=== PATIENT | male | born 1990 | race Caucasian/White ===

== ENCOUNTER 2018-07-24 11:49 | Emergency (ER) | payer SELFPAY ==
[2018-07-24 11:51] VITALS: BP 158/95; PULSE 79; RESP 14; TEMP 36.6; O2SAT 98; BMI 42.1
--- NOTE | 2018-07-24 12:08 | ED.VISSUMM ---
- ER Visit Summary Date of Service: 07/24/18 Chief Complaint: Bruner's palsy History of Present Illness: The patient is a 28 M with a history of Bruner's palsy years ago. He presents with 2 days of left face numbness and weakness. He also has decreased sensation. He had similar symptoms years ago with Bruner's palsy. Denies any vision changes. Denies any leg or arm numbness or weakness. Denies any trouble with his balance. Denies any trouble swallowing. No other symptoms. Physical Examination: Afebrile and vital signs unremarkable. In no acute distress. Alert and oriented. HEENT exam unremarkable except for left facial droop and weakness of his left side forehead muscles--decreased wrinkling. HEENT exam otherwise unremarkable. The remainder of his neurologic testing was unremarkable. No weakness, ataxia, incoordination, confusion, or altered mental status. Heart regular. Lungs clear. Abdomen soft. Skin appears normal without rash. Test Results: None performed Emergency Department Course and Treatment: Patient has signs and symptoms of Bruner's palsy. Will treat with prednisone and acyclovir. No indication for diagnostic testing at this time. Patient was referred to primary care for follow-up. He was advised to return for any new or worsening issues as he may need reevaluation or diagnostic testing if things change. Treatment Plan: As above plus eye precautions Disposition: Discharge Impression: 1. Left-sided Bruner's palsy This note was generated with [employer] dictation software. It may contain incorrect words, spelling, and punctuation that were not noted in review of the chart prior to signing ED Disposition - Plan for ED Patient: Chief Complaint: Neuro S/Sx Referrals: NOT,DEFINED [Primary Care Provider] -
--- NOTE | 2018-07-24 12:11 | ED.DEP ---
ED Disposition - Plan for ED Patient: Chief Complaint: Neuro S/Sx Instructions: ED [place] Palsy Prescriptions: Acyclovir 1 tab PO 5X/DAY #50 tab Prednisone 10 mg PO UD #33 tab Referrals: Clarke Heredia DO [STAFF PHYSICIAN] -
[2018-07-24 12:47] VITALS: RESP 14
== END 2018-07-24 13:14 | disposition home or self-care (01) ==
LOC: ED 13:02
PROVIDERS: Emergency Provider Emergency Medicine
DX: G51.0 Bell's palsy (principal)
CPT/HCPCS: 99282

== ENCOUNTER 2018-09-07 23:31 | Emergency (ER) | payer OTHER, SELFPAY ==
[2018-09-07 23:31] VITALS: BP 173/106; PULSE 68; RESP 17; TEMP 36.4; O2SAT 98; BMI 41.4
--- NOTE | 2018-09-07 23:56 | CT_ITS ---
HISTORY: PT STATED LEFT SIDE NUMBNESS TECHNIQUE: Multiple axial images were obtained of the brain without intravenous contrast. A radiation dose optimization technique was used for this scan. IV Contrast dosage and agent: None. COMPARISON: None FINDINGS: Normal ventricles. Normal yusuf-white matter differentiation. No intracranial mass, hemorrhage, or acute intracranial disease. Posterior fossa structures are unremarkable. No suspicious extra-axial fluid collection. As visualized, the mastoids and paranasal sinuses appear clear. CT/Brain/Head without Contrast IMPRESSION: Normal CT brain without contrast. Individualized dose optimization techniques were used for this CT. at 0054 Reported and signed by: Tino Antonio MD Electronically Signed: Tino Antonio, at 0:53 EST Tel , Service support ,
--- NOTE | 2018-09-07 23:56 | RAD_ITS ---
HISTORY: C/O TINGLING SENSATION IN ARMS AND UPPER CHEST DENIES ANY SOB, COUGH OR PAIN EXAM:XR Chest 1 View: Portable COMPARISON: None FINDINGS: EKG leads in place. Shallow inspiration. Mild elevation of the right hemidiaphragm compatible with chronic change. Equivocal low-grade patchy infiltrate at the right lung base. Left lung appears clear. Normal heart size. No vascular congestion or pleural effusion. No pneumothorax. RAD/Chest 1 View IMPRESSION: Limited inspiration. Equivocal low-grade patchy infiltrate at the right lung base. at 0015 Reported and signed by: Tino Antonio MD Electronically Signed: Tino Antonio, at 0:14 EST Tel , Service support ,
--- NOTE | 2018-09-07 23:56 | EKG12_ITS ---
Test Reason : NUMBNESS Blood Pressure : / mmHG Vent. Rate : 066 BPM Atrial Rate : 066 BPM P-R Int : 142 ms QRS Dur : 084 ms QT Int : 414 ms P-R-T Axes : 018 -03 001 degrees QTc Int : 434 ms Normal sinus rhythm with sinus arrhythmia Normal ECG Confirmed by DAIJA ANDERSON, SHELDON ([id number]), editor in chief newspaper PRABHA WEEKS ([id number]) on 09/13/2018 9:51:11 AM Referred By: ROLDAN Confirmed By:SHELDON CHOE MD
--- NOTE | 2018-09-08 00:16 | ED.RN ---
NO OLD EKGS IN MUSE
[2018-09-08 00:23] VITALS: BP 147/71; PULSE 65; RESP 16; O2SAT 96
[2018-09-08 00:30] VITALS: BP 145/71; PULSE 67; RESP 15; O2SAT 96
[2018-09-08 00:31] LABS: Absolute Lymphocyte Count 3.77 X10^3/ul (0.83-4.51); Basophil# 0.04 X10^3/uL; Basophil% 0.4 % (0-1); Eosinophils% 3.1 % (0-5); Hematocrit 45.4 % (40-54); Hemoglobin 15.1 g/dl (13.0-16.5); Lymphocyte # 3.77 X10^3/ul (4.0); Lymphocyte % 38.8 % (19-41); Mean Corp Hgb Conc 33.3 g/gl (32-36); Mean Corpuscular Hgb 28.8 pg (27.0-32.0); Mean Corpuscular Volume 86.6 fL (80-94); Mean Platelet Vol. 9.1 fl (6.2-12.0); Monocyte# 0.63 X10^3/uL; Monocyte% 6.5 % (0-10); Neutrophil # 4.96 X10^3/uL (2.7-7.7); Neutrophil % 51.1 % (47-70); Platelet Count 251 K/mm3 (150-450); RBC Distribution Width CV 13.5 % (11.6-14.6); RBC Distribution Width SD 42.6 fl (35.1-43.9); Red Blood Count 5.24 M/mm3 (4.6-6.2); White Blood Count 9.7 K/mm3 (4.4-11.0)
[2018-09-08 00:38] LABS: POSITIVE COUNT NO; POSITIVE DIFFERENTIAL NO; POSITIVE MORPHOLOGY NO
[2018-09-08 00:46] LABS: International Normalized Ratio 0.9; Partial Thromboplast Time 28.9 Seconds (24.1-36.2); Prothrombin Time (Protime)PT. 12.5 SECONDS (11.7-14.9)
[2018-09-08 00:51] LABS: Anion Gap 9 (5-15); BUN 9 mg/dL (7-18); Calcium,Total 8.9 mg/dL (8.5-10.1); Chloride 109 mmol/L (98-107); Creatinine, Serum 1.13 mg/dL (0.70-1.30); EST Glomerular Filtration Rate 81 mL/min (>60); Est Glom Filt Rate - Afr Amer 98 mL/min (>60); Estimated Creatinine Clearance 95.59 ml/min; Glucose 99 mg/dL (74-106); Sodium Level 143 mmol/L (136-145)
--- NOTE | 2018-09-08 01:01 | ED.VISSUMM ---
- ER Visit Summary Date of Service: 09/08/18 Chief Complaint: Paresthesias History of Present Illness: The patient is a 28 M who presents with left arm and face numbness and tingling. He was diagnosed with Bruner's palsy in July. He still has some mild left facial weakness and numbness. However he also developed left arm numbness which was new today about 7 hours before presentation. No extremity weakness no slurred speech or speech difficulty. He states he did have similar symptoms in his arm before he developed the Bruner's palsy. No fever chest pain shortness of breath. No headache. Physical Examination: Afebrile vitals notable for blood pressure 173/106 on repeat blood pressure 145/71 NIH is 2 due to left facial weakness which is mild and involves the upper and lower face, patient reports slightly decreased sensation to light touch of the left arm normal strength Heart regular rate and rhythm Lungs are clear Abdomen soft Alert and oriented Test Results: EKG shows sinus rhythm at a rate of 66. CT the head is normal. Chest x-ray shows equivocal low-grade patchy infiltrate at the right base. Labs unremarkable with negative troponin and normal coagulation studies. Emergency Department Course and Treatment: Workup as above. Test x-ray was read as possible infiltrate however he has no respiratory symptoms no hypoxia fever tachycardia cough. I do not believe this represents pneumonia. I believe his facial paresthesia and weakness are likely related to Bruner's palsy. His new left arm paresthesia could be related to process such as cervical radiculopathy. I do not believe he requires admission at this time but he was advised to follow-up as an outpatient and understands clearly to return for any new or worsening symptoms was instructed on specific signs and symptoms to monitor for. Patient discharged. Treatment Plan: [] Disposition: Discharge Impression: Left arm paresthesia Bruner's palsy This note was generated with [employer] dictation software. It may contain incorrect words, spelling, and punctuation that were not noted in review of the chart prior to signing ED Disposition - Plan for ED Patient: Chief Complaint: Numb/Ting Referrals: Care Physician,No Primary [Primary Care Provider] -
--- NOTE | 2018-09-08 01:05 | ED.DEP ---
ED Disposition - Plan for ED Patient: Chief Complaint: Numb/Ting Instructions: ED Paraesthesias Referrals: Care Physician,No Primary [Primary Care Provider] - Clarke Heredia DO [STAFF PHYSICIAN] -
[2018-09-08 01:18] VITALS: BP 152/87; PULSE 68; RESP 15; O2SAT 98
== END 2018-09-08 01:32 | disposition home or self-care (01) ==
PROVIDERS: Emergency Provider Emergency Medicine
DX: R20.2 Paresthesia of skin (principal); G51.0 Bell's palsy
CPT/HCPCS: 70450; 71045; 80048; 84484; 85025; 85610; 85730; 93005; 99285

== ENCOUNTER 2023-09-28 12:28 | Observation (INO) | payer BC, SELFPAY ==
[2023-09-28 12:29] VITALS: BP 159/115; PULSE 88; RESP 16; TEMP 36.1; O2SAT 99; BMI 47.6
--- NOTE | 2023-09-28 13:19 | ED.VIS.GI ---
HPI HPI - GI History of Present Illness Chief Complaint: Abd Pain Informant: patient Abdominal Pain/Flank Pain Onset: Days (2) Context: Gradual Onset Timing: Continuous Quality: Burning and - (Pressure) Location: Epigastric and LUQ Worsened by: Nothing Relieved by: - (Pushing on abdomen) Nausea/Vomiting/Emesis GI Symptom: Positive for Nausea and Vomiting Onset: Today Quality: Positive for Nonbilious; Negative for Blood streaks, Coffee ground or Hematemesis Diarrhea/Melena/Hematochezia GI Symptom: Positive for Diarrhea; Negative for Melena or Hematochezia Associated Symptoms Associated Symptoms: Negative for Dysuria, Frequency or Hematuria Narrative Narrative: Patient presents with abdominal pain that has been getting worse over the past 2 days. Patient states the pain is mainly over the left upper abdomen. Patient states that it has been waxing and waning over the past couple days. Patient states nothing seems to make it worse. Patient states it feels better when he is able to push on his abdomen. Patient describes it as pressure and burning. Patient states it is mainly over the left lower quadrant and epigastric area. Patient denies any back pain. Patient admits to some nausea, vomiting, diarrhea. Patient denies any hematemesis or coffee-ground emesis. Patient denies any melena or hematochezia. Patient denies any urinary complaints. [facility] Medical History (Updated 09/28/23 @ 17:[address] Quintin Allison DO) Hypertension Home Medications aluminum-mag hydroxide-simethicone 200 mg-200 mg-20 mg/5 mL oral susp (Advanced Antacid-Antigas) 5 ml PO Q3H PRN indigestion 09/28/23 [History Last Taken 09/28/23] Allergy/AdvReac Type Severity Reaction Status Date / Time shellfish derived Allergy Mild Itching Verified 09/28/23 12:31 Surgical History no surgical history no surgical history Social History Smoking Status: Never smoker ROS ROS ED Constitutional Constitutional ED: Reports fever(s) and sweats; Denies chills Eyes Eyes: Denies blurry vision or change in vision ENT ENT ED: Denies rhinorrhea or sore throat Cardiovascular Cardiovascular: Denies chest pain or palpitations Respiratory/Chest Respiratory/Chest: Denies cough or dyspnea Gastrointestinal Gastrointestinal: Reports abdominal pain, diarrhea, nausea and vomiting; Denies melena Genitourinary Genitourinary ED: Denies dysuria or hematuria Musculoskeletal Musculoskeletal: Denies back pain or neck pain Integumentary Denies abscess or rash Neurologic Neurologic: Denies headache(s) or weakness Allergic/Immunologic Allergic/Immunologic ED: Denies mouth swelling or urticaria EXAM Physical Exam Const Vital Signs: 09/28/23 12:29 Temperature 97.0 F L Temperature Source Temporal Pulse Rate 88 Respiratory Rate 16 Blood Pressure 159/115 H Blood Pressure Mean 129 Pulse Ox 99 Oxygen Delivery Method Room Air Positive well nourished and well developed General Appearance ED: well developed and NAD HEENT Reports moist mucous membranes Neck supple and no JVD Resp normal respiratory effort and clear to auscultation bilaterally Cardio regular rate and regular rhythm GI non-distended Palpation: soft and tender epigastric and LUQ; Negative for guarding or rebound tenderness present Extremity full ROM General Extremety ED: Negative for edema or tenderness General Extremity: Negative for edema Neuro CN's II-XII intact bilaterally, moves all extremities and no sensory deficits noted Sensorium / Orientation: alert Motor Exam: strength 5/5 throughout Psych mental status grossly normal MDM MDM MDM Narrative Medical decision making narrative: Differential diagnosis includes peptic ulcer disease, GERD, pancreatitis, duodenal ulcer, cholecystitis, cholelithiasis, pyelonephritis, bowel obstruction, and perforation. CT scan of the abdomen pelvis will be obtained to assess for pancreatitis, cholecystitis, bowel obstruction, and perforation. CBC will be obtained to assess for leukocytosis and anemia. Comprehensive metabolic profile will be obtained to assess for hepatic function, renal function, and electrolyte abnormality. Urinalysis will be obtained to assess for urinary tract infection or hematuria. Lipase will be obtained to assess for pancreatitis. Lab Data Attestation: I reviewed the patient's lab results. Lab results narrative: CBC was reviewed. There is a mild leukocytosis of 16.9. The remainder is within normal limits. Comprehensive metabolic profile was reviewed. AST was slightly elevated at 109 and ALT was slightly elevated at 201. Total bilirubin was normal. Alkaline phosphatase was normal. Electrolytes were normal. Anion gap was normal. Lipase was reviewed and was normal at 18. Urinalysis was reviewed. There is no evidence of urinary tract infection or hematuria. Labs: Laboratory Results - last 24 hr 09/28/23 09/28/23 13:40 13:50 WBC 16.9 H RBC 5.79 Hgb 16.3 Hct 49.6 MCV 85.7 MCH 28.2 MCHC 32.9 RDW Std Deviation 41.2 RDW Coeff of Lynda 13.4 Plt Count 336 MPV 9.4 Immature Gran % (Auto) 0.500 Neut % (Auto) 77.9 H Lymph % (Auto) 16.4 L [place] % (Auto) 4.1 Eos % (Auto) 0.4 Baso % (Auto) 0.7 Absolute Neuts (auto) 13.2 H Absolute Lymphs (auto) 2.76 Nucleated RBC % 0 Sodium 136 Potassium 4.1 Chloride 106 Carbon Dioxide 21.0 Anion Gap 9 BUN 9 Creatinine 0.89 Estim Creat Clear Calc 160.41 Est GFR (MDRD) Af Amer 124 Est GFR (MDRD) Non-Af 103 BUN/Creatinine Ratio 10.1 Glucose 100 Calcium 9.0 Total Bilirubin 0.30 AST 109 H ALT 201 H Alkaline Phosphatase 97 Total Protein 7.5 Albumin 3.7 Globulin 3.8 Albumin/Globulin Ratio 1.0 Lipase 18 Urine Color Yellow Urine Clarity Clear Urine pH 7.0 Ur Specific [place] 1.010 Urine Protein 100 H Urine Glucose (UA) Normal Urine Ketones 5 H Urine Occult Blood Negative Urine Nitrite Negative Urine Bilirubin Negative Urine Urobilinogen Normal Ur Leukocyte Esterase Negative Urine RBC 0 SEEN Urine WBC 0 SEEN Ur Squamous Epith Cells 0-5 SEEN Urine Bacteria 0 SEEN Urine Mucus 0 SEEN Radiography Diagnostic Testing: Clinical Impression(s) from Imaging Studies Abdomen/Pelvis CT 09/28/23 13:33 IMPRESSION: Diffuse fatty infiltration of the liver. Possible mild degree of gallbladder wall thickening. Correlation with ultrasound is recommended if clinically indicated. Scattered sigmoid diverticula. Electronically Signed: Hussain Evangelista MD at 15:38 EST , Gallbladder Ultrasound 09/28/23 15:46 IMPRESSION: Cholelithiasis with gallbladder wall thickening. No biliary dilatation. Fatty enlarged liver. Electronically Signed: Tommy Sales DO at 16:47 EST , CT scan of the abdomen pelvis was obtained. There is diffuse fatty infiltration of the liver. There is possible mild degree of gallbladder wall thickening. There are scattered sigmoid diverticula. There is no evidence of diverticulitis. This was interpreted by the radiologist and was also independently reviewed by myself. Because of the CT findings, right upper quadrant ultrasound was obtained. There is cholelithiasis and gallbladder wall thickening. There is no ductal dilatation noted. There is no pericholecystic fluid noted. Patient negative sonographic Patel sign. This was interpreted by the radiologist and was also independently reviewed by myself. Management Discussion w/another healthcare provider: Manager Metrology Treatment and Re-Evaluation :: Patient was given IV fluids, morphine, and Zofran. Due to his allergy to shellfish, patient was given a dose of Benadryl and Solu-Medrol prior to CT scan. Patient was feeling somewhat better on reevaluation. Patient was advised of his findings. Patient states that his pain is starting to return. Patient was given a repeat dose of morphine. Case will be discussed with Dr. Andres from general surgery. He will be in to evaluate the patient. He stated he would likely admit the patient for possible cholecystectomy tomorrow. Patient was given a dose of Zosyn. Patient understood and was agreeable with the plan. All questions were answered. Discharge Plan Triage Chief Complaint: Abd Pain ED Provider: Quintin Allison Dx/Rx/DC Orders Clinical Impression: Acute cholecystitis, Cholelithiasis Prescriptions: No Action alum-mag hydroxide-simeth [Advanced Antacid-Antigas] 200-200-20 mg/5 mL suspension 5 ml PO Q3H PRN (Reason: indigestion) Primary Care Provider: Andreas Winkler Referrals: Care Physician,No Primary [Non-Staff] - Disposition Disposition: [facility]3] Care [facility]
--- NOTE | 2023-09-28 13:33 | CT_ITS ---
STUDY: CT ABDOMEN AND PELVIS WITH CONTRAST REASON FOR EXAM: Male, 33 years old. Left upper quadrant abdominal pain. RADIATION DOSAGE (If Supplied By Facility): CTDIvol = ( 18.74 ) mGy, DLP = ( 1390.01 ) mGycm TECHNIQUE: Transaxial images were obtained from the dome of the diaphragm to the symphysis pubis with oral contrast. Oral and amp; IV Gastrografin and amp; 100mL Isovue-370 was administered. Sagittal and coronal images were reconstructed. Individualized dose optimization techniques were used for this CT. COMPARISON: None. FINDINGS: The visualized lung bases are unremarkable. The visualized portions of the heart are within normal limits. There is decreased attenuation of the liver consistent with steatosis. Questionable mild gallbladder wall thickening. Correlation with ultrasound is recommended if clinically indicated. Normal spleen. Normal pancreas. Normal bilateral adrenal glands. Normal right kidney. Normal left kidney. Normal visualized stomach. Normal small intestine. There are scattered colonic diverticula consistent with diverticulosis. The appendix is visualized and appears normal. Normal abdominal aorta. Normal inferior vena cava. Normal retroperitoneum. Normal urinary bladder. Normal abdominal wall. Normal osseous structures. CT/Abdomen/Pelvis WITH Contrast IMPRESSION: Diffuse fatty infiltration of the liver. Possible mild degree of gallbladder wall thickening. Correlation with ultrasound is recommended if clinically indicated. Scattered sigmoid diverticula. Electronically Signed: Hussain Evangelista MD at 15:38 EST ,
[2023-09-28 13:50] LABS: Absolute Lymphocyte Count 2.76 X10^3/uL (0.83-4.51); Absolute Neutrophil Count 13.2 X10^3/uL (2.0-7.7); Basophil# 0.11 X10^3/uL; Basophil% 0.7 % (0-1); Eosinophil# 0.07 X10^3/uL; Eosinophils% 0.4 % (0-5); Hematocrit 49.6 % (40-54); Hemoglobin 16.3 g/dL (13.0-16.5); Lymphocyte # 2.76 X10^3/ul (0.83-4.51); Lymphocyte % 16.4 % (19-41); Mean Corp Hgb Conc 32.9 g/dL (32-36); Mean Corpuscular Hgb 28.2 pg (27.0-32.0); Mean Corpuscular Volume 85.7 fL (80-94); Mean Platelet Vol. 9.4 fl (6.2-12.0); Monocyte% 4.1 % (0-10); NRBC Flagged by Analyzer 0 % (0-5); Neutrophil # 13.15 X10^3/uL (2.7-7.7); Neutrophil % 77.9 % (47-70); Platelet Count 336 K/mm3 (150-450); RBC Distribution Width CV 13.4 % (11.6-14.6); RBC Distribution Width SD 41.2 fl (35.1-43.9); Red Blood Count 5.79 M/mm3 (4.6-6.2); White Blood Count 16.9 K/mm3 (4.4-11.0)
[2023-09-28 13:57] LABS: Bacteria 0 SEEN /hpf (None Seen); Mucous, Urine 0 SEEN /hpf (<or=2+); Red Blood Cells-Urine 0 SEEN /hpf (0-5); White Blood Cells 0 SEEN /hpf (0-5)
[2023-09-28 13:59] LABS: Color, Urine Yellow (Yellow); Glucose, Dipstick Normal (Normal); Ketone-Dipstick 5 mg/dl (Negative); Leukocyte Esterase-Dipstick Negative /ul (Negative); Nitrite-Dipstick Negative (Negative); Occult Blood-Urine Negative /ul (Negative); Protein-Dipstick 100 mg/dl (Negative); Urine Bilirubin Dipstick Negative (Negative); Urine Clarity Clear (Clear); Urine Urobilinogen Normal (Normal)
[2023-09-28] MEDS: Morphine 4 MG/ML Syringe IV ×2 (14:00→17:28)
[2023-09-28] MEDS: MethylPREDNISolone 125 MG/2 ML Vial 60 MG IV (14:00)
[2023-09-28] MEDS: Ondansetron 4 MG/2 ML Vial IV (14:00)
[2023-09-28] MEDS: 0.9% Normal Saline (1000mL) 1,000 ML 1000 ML IV (14:00)
[2023-09-28] MEDS: DiphenhydrAMINE 50 MG/ML Syringe 25 MG IV (14:00)
[2023-09-28 14:12] LABS: AST(SGOT) 109 U/L (15-37); Alanine Aminotransfer ALT/SGPT 201 U/L (16-61); Albumin, Serum 3.7 g/dL (3.2-5.0); Alkaline Phosphatase 97 U/L (45-117); Anion Gap 9 (5-15); BUN 9 mg/dL (7-18); BUN/Creat Ratio 10.1 RATIO (10-20); Chloride 106 mmol/L (98-107); Creatinine, Serum 0.89 mg/dL (0.70-1.30); EST Glomerular Filtration Rate 103 mL/min (>60); Est Glom Filt Rate - Afr Amer 124 mL/min (>60); Estimated Creatinine Clearance 160.41 ml/min; Globulin 3.8 g/dL (2.2-4.2); Glucose 100 mg/dL (74-106); Lipase 18 U/L (13-75); Potassium 4.1 mmol/L (3.5-5.1); Protein, Total 7.5 g/dL (6.4-8.2); Sodium Level 136 mmol/L (136-145)
[2023-09-28 14:27] LABS: Squamous Epithelial Cells - UA 0-5 SEEN /hpf (0-5)
--- NOTE | 2023-09-28 15:46 | US_ITS ---
INDICATION: PAIN EXAMINATION: Ultrasound US Abdomen Limited (quadrant) TECHNIQUE: Hobbs scale and color doppler imaging was performed of the right upper quadrant. COMPARISON: FINDINGS: LIVER: There is fatty echotexture measuring 22.3 cm. There is an ill-defined area measuring 3.8 x 2.2 cm of hypoechogenicity adjacent to the gallbladder related to focal area of fatty sparing. There is no free fluid. GALLBLADDER AND BILIARY TREE: Cholelithiasis with gallbladder wall thickening measuring 7.8 mm. No pericholecystic fluid. The proximal common bile duct measures 4.8 mm, which is within normal limits for the patient''s age. Songraphic Patel''s sign: Negative. PANCREAS: Limited visualization of the pancreas. RIGHT KIDNEY: 4.4 x 6.0 x 5.7 cm the cortex is 40 mm. No hydronephrosis. No shadowing calculi. US/Gallbladder IMPRESSION: Cholelithiasis with gallbladder wall thickening. No biliary dilatation. Fatty enlarged liver. Electronically Signed: Tommy Sales DO at 16:47 EST ,
[2023-09-28 17:34] VITALS: BP 164/95; PULSE 83; RESP 16; O2SAT 94
[2023-09-28] MEDS: Piperacil/Tazobactam 4.5 GM in 0.9% Normal Saline (100mL MB+) 100 ML IV (18:19)
--- NOTE | 2023-09-28 18:31 | PCM.HP.STD ---
HPI - General General Date of Admission: 09/28/23 Chief Complaint: Abdominal pain HPI Narrative RELL WHARTON, is a 33 M who presents to [facility] ER with complaints of upper abdominal pain that began suddenly approximately 1 AM this morning after a dinner of pulled pork at 7 PM last evening. He shares his pain was accompanied by nausea, sweats, and some diarrhea. 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 He acknowledges a history of heartburn but states this feels different. He relates that he has had milder versions of this abdominal pain for the last month or so. Patient's ER workup was notable for CBC which shows leukocytosis of 17,[address] imaging of the abdomen pelvis showed a mildly thickened gallbladder wall which was confirmed with follow-up right upper quadrant ultrasound. Notably no ductal dilatation was seen on that study but LFTs as part of patient's comprehensive metabolic panel were elevated. Patient has a history of hypertension but he states is not managed medically. He has had no prior surgeries. [facility] Medical History Hyperlipidemia Hypertension Home Medications aluminum-mag hydroxide-simethicone 200 mg-200 mg-20 mg/5 mL oral susp (Advanced Antacid-Antigas) 5 ml PO Q3H PRN indigestion 09/28/23 [History Last Taken 09/28/23] Allergy/AdvReac Type Severity Reaction Status Date / Time shellfish derived Allergy Mild Itching Verified 09/28/23 12:31 Surgical History no surgical history Social History Smoking Status: Current every day smoker tobacco type: cigarettes ROS Constitutional Constitutional: Reports night sweats Gastrointestinal Gastrointestinal: Reports abdominal pain, diarrhea, nausea and vomiting Vital Signs Vital Signs Vital Signs: 09/28/23 12:29 09/28/23 17:34 Temperature 97.0 F L Temperature Source Temporal Pulse Rate 88 83 Respiratory Rate 16 16 Blood Pressure 159/115 H 164/95 H Blood Pressure Mean 129 118 Pulse Ox 99 94 Oxygen Delivery Method Room Air Room Air Weight Weight: 313 lb 6 oz Body Mass Index (BMI) 47.6 Physical Exam Const alert Constitutional Narrative: Appears in distress with a hand constantly over his epigastrium and right upper quadrant General Appearance: cooperative Resp normal respiratory effort GI GI Narrative: Nondistended, no scars, hirsute, soft, tender to palpation in the epigastrium and right upper quadrant. Positive Patel sign is present. Results Lab / Micro Data 09/28/23 13:40 09/28/23 13:40 Labs: Laboratory Results - last 24 hr 09/28/23 13:40: WBC 16.9 H, RBC 5.79, Hgb 16.3, Hct 49.6, MCV 85.7, MCH 28.2, MCHC 32.9, RDW Std Deviation 41.2, RDW Coeff of Lynda 13.4, Plt Count 336, MPV 9.4, Immature Gran % (Auto) 0.500, Neut % (Auto) 77.9 H, Lymph % (Auto) 16.4 L, [place] % (Auto) 4.1, Eos % (Auto) 0.4, Baso % (Auto) 0.7, Absolute Neuts (auto) 13.2 H, Absolute Lymphs (auto) 2.76, Nucleated RBC % 0, Sodium 136, Potassium 4.1, Chloride 106, Carbon Dioxide 21.0, Anion Gap 9, BUN 9, Creatinine 0.89, Estim Creat Clear Calc 160.41, Est GFR (MDRD) Af Amer 124, Est GFR (MDRD) Non-Af 103, BUN/Creatinine Ratio 10.1, Glucose 100, Calcium 9.0, Total Bilirubin 0.30, AST 109 H, ALT 201 H, Alkaline Phosphatase 97, Total Protein 7.5, Albumin 3.7, Globulin 3.8, Albumin/Globulin Ratio 1.0, Lipase 18 09/28/23 13:50: Urine Color Yellow, Urine Clarity Clear, Urine pH 7.0, Ur Specific [place] 1.010, Urine Protein 100 H, Urine Glucose (UA) Normal, Urine Ketones 5 H, Urine Occult Blood Negative, Urine Nitrite Negative, Urine Bilirubin Negative, Urine Urobilinogen Normal, Ur Leukocyte Esterase Negative, Urine RBC 0 SEEN, Urine WBC 0 SEEN, Ur Squamous Epith Cells 0-5 SEEN, Urine Bacteria 0 SEEN, Urine Mucus 0 SEEN Imaging Radiology Impression Abdomen/Pelvis CT 09/28/23 13:33 IMPRESSION: Diffuse fatty infiltration of the liver. Possible mild degree of gallbladder wall thickening. Correlation with ultrasound is recommended if clinically indicated. Scattered sigmoid diverticula. Electronically Signed: Hussain vEangelista MD at 15:38 EST , Gallbladder Ultrasound 09/28/23 15:46 IMPRESSION: Cholelithiasis with gallbladder wall thickening. No biliary dilatation. Fatty enlarged liver. Electronically Signed: Tommy Sales DO at 16:47 EST , Assessment & Plan Assessment/Plan (1) Acute cholecystitis: PLAN: This is a 33-year-old male, with only prior past medical history of untreated hypertension, who presents with signs and symptoms of acute cholecystitis. His exam is further consistent with this diagnosis. I have discussed management of this condition and recommended proceeding for laparoscopic cholecystectomy with intraoperative cholangiography. The latter is particularly important given the patient does exhibit some elevation of his LFTs. I have shared with him that an alternative explanation could be some fatty liver infiltration and we will look to assess whether this is the case, grossly, intraoperatively. Details of the procedure were provided and Mr. Wharton provides his verbal agreement to proceed as described. We will plan to go to the operating room tomorrow morning as the emergency OR schedule allows. In the interim he will be admitted overnight for IV antibiotics, IV fluids, and ongoing medical management. Patient should be held n.p.o. past midnight in anticipation of his operation. Consents to be obtained by nursing for laparoscopic cholecystectomy with intraoperative cholangiogram. Charges/Coding Visit Charges Inpatient E&M: 86942 Init Hosp L2
[2023-09-28 18:57] VITALS: BP 169/83; PULSE 85; RESP 12; TEMP 37; O2SAT 96; BMI 47.6
[2023-09-28] MEDS: 0.9% Normal Saline (1000mL) 1,000 ML 125 ML IV (19:06)
[2023-09-28] MEDS: Pantoprazole Sodium 40 MG in 0.9% Normal Saline (100mL MB+) 100 ML 330 MG IV (19:18)
[2023-09-28 20:05] VITALS: BMI 47.6
[2023-09-28 22:21] VITALS: BP 159/85; PULSE 84; RESP 18; TEMP 36.6; O2SAT 95
[2023-09-28] MEDS: HYDROmorphone 0.5 MG/0.5 ML SYRINGE IV (23:01)
[2023-09-28] MEDS: Piperacil/Tazobactam 3.375 GM in 0.9% Normal Saline (50mL MB+) 50 ML IV (23:01)
[2023-09-29] VITALS (20 sets, daily range): BP systolic 142–199; BP diastolic 72–108; PULSE 84–107; RESP 16–24; TEMP 36.2–37.5; O2SAT 95–100; BMI 47.6
[2023-09-29] MEDS: 0.9% Normal Saline (1000mL) 1,000 ML 125 ML IV ×2 (01:16→15:11)
[2023-09-29 05:48] LABS: Absolute Lymphocyte Count 2.68 X10^3/uL (0.83-4.51); Absolute Neutrophil Count 18.7 X10^3/uL (2.0-7.7); Basophil# 0.04 X10^3/uL; Basophil% 0.2 % (0-1); Hematocrit 46.9 % (40-54); Hemoglobin 15.5 g/dL (13.0-16.5); Lymphocyte # 2.68 X10^3/ul (0.83-4.51); Mean Corpuscular Hgb 28.3 pg (27.0-32.0); Mean Corpuscular Volume 85.7 fL (80-94); Mean Platelet Vol. 9.5 fl (6.2-12.0); Monocyte# 0.84 X10^3/uL; Monocyte% 3.8 % (0-10); NRBC Flagged by Analyzer 0 % (0-5); Neutrophil # 18.67 X10^3/uL (2.7-7.7); Neutrophil % 83.4 % (47-70); Platelet Count 321 K/mm3 (150-450); RBC Distribution Width CV 13.4 % (11.6-14.6); RBC Distribution Width SD 42.3 fl (35.1-43.9); Red Blood Count 5.47 M/mm3 (4.6-6.2); White Blood Count 22.4 K/mm3 (4.4-11.0)
[2023-09-29] MEDS: Piperacil/Tazobactam 3.375 GM in 0.9% Normal Saline (50mL MB+) 50 ML IV ×3 (06:12→21:34)
[2023-09-29 06:20] LABS: ALB/GLOB Ratio 0.9 RATIO (0.9-2.4); AST(SGOT) 49 U/L (15-37); Alanine Aminotransfer ALT/SGPT 155 U/L (16-61); Albumin, Serum 3.7 g/dL (3.2-5.0); Alkaline Phosphatase 92 U/L (45-117); Anion Gap 5 (5-15); BUN 8 mg/dL (7-18); BUN/Creat Ratio 8.8 RATIO (10-20); Chloride 106 mmol/L (98-107); EST Glomerular Filtration Rate 101 mL/min (>60); Est Glom Filt Rate - Afr Amer 122 mL/min (>60); Estimated Creatinine Clearance 158.54 ml/min; Globulin 3.9 g/dL (2.2-4.2); Glucose 120 mg/dL (74-106); Magnesium 2.4 mg/dL (1.6-2.6); Phosphorus 3.1 mg/dL (2.5-4.9); Protein, Total 7.6 g/dL (6.4-8.2); Sodium Level 135 mmol/L (136-145)
--- NOTE | 2023-09-29 06:30 | RAD_ITS ---
CLINICAL HISTORY: Male, 33 years old. Cholecystectomy PROCEDURE: CHOLANGIOGRAM - intraoperative CONSENT: Informed consent obtained SEDATION: General FLUOROSCOPY TIME (if supplied): (11.4 seconds) Placement of the catheter and the procedure were performed by: Dr. Andres Fluoroscopy was provided by Rebecca Triplett, who was present in the room time of the procedure. TECHNIQUE: (All elements of maximal sterile barrier technique followed, including US elements as applicable) After the gallbladder was removed, the cystic duct remnant was cannulized and contrast injected into the biliary tree. The biliary tree is not dilated, there is no evidence of a retained stone. There is normal flow of contrast into the duodenum without evidence of extravasation to suspect bile leak. RAD/Cholangiogram/ O R,Initial IMPRESSION: Normal intraoperative cholangiogram Electronically Signed: Tho Gilbert MD at 13:55 EST ,
--- NOTE | 2023-09-29 09:00 | GALL_PTH ---
PATIENT: RELL KENDALL LOC: MS3 U#:[id number] AGE/SX: 33/M ROOM: [facility] [place] RE[place]/28/[address]: Dr. Edilson Andres MD : 1990 BED: 1 DIS: 10/01/2023 SPEC #: [id number] RECD: 09/29/23 15:19 STATUS: GAGE REQ #: [id number] YE: 09/29/23 09:[address]: Edilson Andres DEPT: SURGICAL PATHOLOGY RECD BY: Mirian Chatterjee ENTERED: 09/30/23 08:40 SP TYPE: MIGUEL CASAREZ DR: MD Dr. Hamzah Gamino, DO MD Dr. Mellissa Khanna MD Dr. Achintya Singh, MD Dr. Autumn L White, MD Dr. Mary Catherine Sementi, DO Dr. Andrzej Dunn, DO MD Marcus Pearson MD Dr. Eric Jopperi, DO MD Dr. Sergey Trevino MD Dr. James Mooney, MD Dr. Jonathan Vogt, DO Dr. Arabella Terry, DO Dr. Clarke Dietz, DO MD Dr. Juanito Franco MD Dr. Prakash Chand, MD Dr. Paul Nielsen, MD Dr. Paige Pierce, MD Dr. Ryan Burkholder, MD Dr. William Lago, MD Jessica Franklin, EHSAN-GRANT Zuleta Tissues: Gallbladder, NOS Procedures: Surgery Specimen Level III HEADER OPERATION: Laparoscopic cholecystectomy with IOC PRE-OP DIAGNOSIS: Acute cholecystitis TISSUE SUBMITTED: Gallbladder MICROSCOPIC DIAGNOSIS Gallbladder, cholecystectomy: Chronic cholecystitis and cholelithiasis. AM:priya 10/01/2023 MICROSCOPIC DESCRIPTION Slides are reviewed. GROSS DESCRIPTION Received is one container labeled with the patient's name and designated gallbladder. The specimen consists of a previously, partially opened gallbladder measuring 8.5 cm in length and 4.0 cm in diameter. The external surface is pink-hairston, smooth and glistening for the most part. Focally it is granular, hemorrhagic and contains cautery artifact. The gallbladder contains a large amount of sludge material. Present in the gallbladder and also in the container are multiple yellow, multifaceted stones and stone fragments measuring in aggregate 7.0 x 5.0 x 2.0 cm and 0.4 to 1.8 cm in greatest dimension. The mucosa is congested, hemorrhagic and ulcerated. Many of the stones are impacted in the cystic duct. bile-stained and without any mass lesions. The gallbladder wall measures up to 0.5 cm in thickness. Water Main Installer Helper sections from the gallbladder and the cystic duct are submitted in one cassette. / SJ:rg 09/30/2023 TC:3 CPT: 95092
[2023-09-29] MEDS: Bupivacaine Mpf 0.5% 30 ML VIAL (13:05)
[2023-09-29] MEDS: Lactated Ringers 1,000 ML 15 ML IV (13:10)
--- NOTE | 2023-09-29 13:12 | PCM.OPRPT ---
Problems Associated Problem List Diagnoses (1) Acute cholecystitis: Report of Operation Date of Procedure: 09/29/23 Pre-Operative Diagnosis: Acute cholecystitis Post-Operative Diagnosis: Acute on chronic cholecystitis Surgery/Procedure Performed:: Laparoscopic cholecystectomy with intraoperative cholangiography Description of Surgical Findings:: ? Severe acute on chronic cholecystitis with diminutive cystic duct and anterior and posterior cystic arteries but otherwise normal biliary anatomy Surgeon: Edilson Andres hotel front desk clerk: Rafita Coulter hotel front desk clerk: Alisson Soriano Type of Anesthesia: General/Supplemental Anesthesiologist: Darryl Schuster Specimen's removed: Gallbladder Drains: None Estimated Blood Loss (mL): 100 Description of Procedure: After proper identification in the preoperative holding area the patient was brought to the operating room where he was positioned supine on the operating room table. Preoperatively that these were connected and antibiotics were administered. General anesthesia was then induced. Patient's abdomen was prepped and draped in usual sterile fashion. A formal timeout was conducted to confirm both patient and the procedure. Procedure was begun with a supraumbilical incision which was extended deeply down to the level of the fascia. The fascia was elevated and incised, as well as the peritoneum. A finger sweep was performed to ensure there were no underlying adhesions and a 12 mm balloon trocar was inserted. Pneumoperitoneum was established at 15 mmHg. 3 additional 5 mm trocars were placed in the epigastrium and in the right upper quadrant initially but a fourth trocar was added to the right upper quadrant later in the procedure. Inspection of the peritoneum revealed no inadvertent injury to the viscera below. The gallbladder was visualized with a moderate degree of inflammation but was also heavily surrounded in the omentum initially. The gallbladder fundus was unable to be easily grasped given the density of the stones and the thickness of the gallbladder wall which limited its ability to be elevated cephalad. Using careful dissection the peritoneum was opened and the rind of the gallbladder was stripped down from lateral to medial. The density of the inflammation proved very challenging to isolate the infundibular portion of the gallbladder and I thus requested the assistance of my partner, Dr. Coulter, to complete this portion of the procedure. During the attempt to elevate the gallbladder cephalad I made an inadvertent rent in the gallbladder body adjacent to the infundibular region resulting in local spillage of bile and stones which were immediately suctioned free of the peritoneum. After Dr. Coulter arrived to the OR, jointly we were able to carefully take down the inflammatory rind medially and identified a diminutive cystic duct entering the location of the presumed common bile duct as well as anterior and posterior cystic arteries. This diminutive duct was cannulated with a Ranfac catheter after partial ductotomy and a cholangiogram was obtained. Under fluoroscopy a cholangiogram was then obtained showing a standard length small caliber cystic duct flowing into a common bile duct with unobstructed antegrade flow of contrast into the duodenum. There was also retrograde flow through the common hepatic duct into the right and left hepatic ducts. Satisfied with this result, the cholangiocatheter was withdrawn and the proximal cystic duct was sealed with clips and the cystic duct was completely transected. The same process was used for the cystic arteries. The gallbladder was then removed from the gallbladder fossa with the use of electrocautery. Selective electrocautery was used to obtain hemostasis in the gallbladder fossa. The gallbladder was placed in an Endo Catch bag and removed from the peritoneum. Loose gallstones were also added to this Endo Catch bag after identification laparoscopically. Morison's pouch was irrigated with multiple liters of irrigation and the effluent was suctioned free of the peritoneum. Hemostasis was again confirmed. The fascia of the 12 mm port site was closed with #1 PDS in a [id number] fashion under laparoscopic visualization given the thickness of the patient's abdominal wall. A total of 30 mL of anesthetic was injected at the port sites for postoperative pain control. The skin of each port site was then closed in subcuticular fashion using 4-0 Monocryl. Steri-Strips and bandages were applied as dressings. Patient tolerated the procedure well without any apparent complications. On emergence from their anesthetic the patient was taken to PACU for ongoing recovery. Complications None Admit VTE Documentation VTE Mechan Device Prophylaxis: SCD's Procedures Digestive 40xxx-49xxx: 01596 Laparo cholecystectomy/graph
--- NOTE | 2023-09-29 13:59 | PCM.PN.HOSP ---
Reason for Visit Reason for Visit: Diagnoses Acute cholecystitis (09/28/23) Subjective Subjective 33M history of hypertension presented to [facility] 09/28/2023 with worsening abdominal pain over 2 days mainly over his left upper abdomen. Pain had been waxing and waning and sometimes feels better when he is able to push on his abdomen without any worsening factors. Pain is pressure and burning in nature and mainly left lower quadrant and epigastric in nature. Has had some nausea, vomiting, diarrhea without hematemesis or coffee-ground emesis. In ED AST 109 and ALT 201 with white blood cell count of 16.9 lab workup fairly benign otherwise. He did have CT of the abdomen which showed diffuse fatty infiltration of the liver with possible gallbladder wall thickening and ultrasound was recommended and this was obtained in ED. Ultrasound demonstrated cholelithiasis with gallbladder wall thickening with no biliary dilatation and fatty enlarged liver. Case was discussed with general surgery and he was admitted for cholecystitis and taken for cholecystectomy 09/29/2023. Hospitalist consulted postoperatively for medical management/perioperative hypertension. Patient evaluated post cholecystectomy. Pt seen at bedside, reports abd soreness, no nausea, no chest pain or SOB, no other acute complaints. Objective Data Objective Data Vital Signs: Vital Signs Temp Pulse Resp BP Pulse Ox O2 Del Method O2 Flow Rate 97.8 F 89 22 H 172/93 H 97 Nasal Cannula 4 09/29/23 13:33 09/29/23 13:45 09/29/23 13:45 09/29/23 13:45 09/29/23 13:45 09/29/23 13:45 09/29/23 13:45 Oxygen Flow Rate (L/min) 4 Oxygen Delivery Method Nasal Cannula Weight: 142 kg Body Mass Index (BMI) 47.6 Intake & Output: Intake and Output for Last 24 Hours 09/27/23 09/28/23 09/29/23 23:59 23:59 23:59 Intake Total 1810 / 1810 870.83 / 870.83 Balance 1810 / 1810 870.83 / 870.83 Lab / Micro Data 09/29/23 05:27 09/29/23 05:27 Labs: Laboratory Results - last 24 hr 09/28/23 13:40: Sodium 136, Potassium 4.1, Chloride 106, Carbon Dioxide 21.0, Anion Gap 9, BUN 9, Creatinine 0.89, Estim Creat Clear Calc 160.41, Est GFR (MDRD) Af Amer 124, Est GFR (MDRD) Non-Af 103, BUN/Creatinine Ratio 10.1, Glucose 100, Calcium 9.0, Total Bilirubin 0.30, AST 109 H, ALT 201 H, Alkaline Phosphatase 97, Total Protein 7.5, Albumin 3.7, Globulin 3.8, Albumin/Globulin Ratio 1.0, Lipase 18 09/28/23 13:50: Urine Color Yellow, Urine Clarity Clear, Urine pH 7.0, Ur Specific Bayard 1.010, Urine Protein 100 H, Urine Glucose (UA) Normal, Urine Ketones 5 H, Urine Occult Blood Negative, Urine Nitrite Negative, Urine Bilirubin Negative, Urine Urobilinogen Normal, Ur Leukocyte Esterase Negative, Urine RBC 0 SEEN, Urine WBC 0 SEEN, Ur Squamous Epith Cells 0-5 SEEN, Urine Bacteria 0 SEEN, Urine Mucus 0 SEEN 09/29/23 05:27: WBC 22.4 H, RBC 5.47, Hgb 15.5, Hct 46.9, MCV 85.7, MCH 28.3, MCHC 33.0, RDW Std Deviation 42.3, RDW Coeff of Lynda 13.4, Plt Count 321, MPV 9.5, Immature Gran % (Auto) 0.600, Neut % (Auto) 83.4 H, Lymph % (Auto) 12.0 L, [place] % (Auto) 3.8, Eos % (Auto) 0.0, Baso % (Auto) 0.2, Absolute Neuts (auto) 18.7 H, Absolute Lymphs (auto) 2.68, Nucleated RBC % 0, Sodium 135 L, Potassium 4.0, Chloride 106, Carbon Dioxide 24.0, Anion Gap 5, BUN 8, Creatinine 0.90, Estim Creat Clear Calc 158.54, Est GFR (MDRD) Af Amer 122, Est GFR (MDRD) Non-Af 101, BUN/Creatinine Ratio 8.8 L, Glucose 120 H, Calcium 9.0, Phosphorus 3.1, Magnesium 2.4, Total Bilirubin 0.50, AST 49 H, ALT 155 H, Alkaline Phosphatase 92, Total Protein 7.6, Albumin 3.7, Globulin 3.9, Albumin/Globulin Ratio 0.9 Radiography Diagnostic Testing: Radiology Impression Abdomen/Pelvis CT 09/28/23 13:33 IMPRESSION: Diffuse fatty infiltration of the liver. Possible mild degree of gallbladder wall thickening. Correlation with ultrasound is recommended if clinically indicated. Scattered sigmoid diverticula. Electronically Signed: Hussain Evangelista MD at 15:38 EST , Gallbladder Ultrasound 09/28/23 15:46 IMPRESSION: Cholelithiasis with gallbladder wall thickening. No biliary dilatation. Fatty enlarged liver. Electronically Signed: Tommy Sales DO at 16:47 EST , Cholangiogram 09/29/23 06:30 IMPRESSION: Normal intraoperative cholangiogram Electronically Signed: Tho Gilbert MD at 13:55 EST , Assessment & Plan Assessment/Plan (1) Acute cholecystitis: (2) Hypertension: PLAN: Plan #HTN -Suspect this is a chronic problem that will need further outpatient follow-up however we will begin medication while in the hospital -Given significant elevation start amlodipine today and continue hydralazine as needed and will plan to start losartan tomorrow and these can both be uptitrated over time, presently not in hypertensive urgency or emergency so no emergent indication to acutely lower blood pressure # Acute on chronic cholecystitis -Status post cholecystectomy 09/29/2023 -Fluids -Antibiotics -Management per primary #Morbid obesity -BMI 47.6 kg/m? -Complicates treatment, prognosis, outcomes -Recommend weight loss and lifestyle changes -May benefit from outpatient sleep study/sleep apnea evaluation #DVT ppx: SCDs Marlys Shipman MD Time spent in the patient's overall evaluation,decision-making process, review of diagnostic data, adjustment of management, discussion with other providers, nursing nursing and ancillary staff involved in patient's care documentation, 42 minutes Charges/Coding Visit Charges Inpatient E&M: 16599 Subs Hosp L2
[2023-09-29] MEDS: Pantoprazole Sodium 40 MG in 0.9% Normal Saline (100mL MB+) 100 ML 330 MG IV (15:11)
[2023-09-29] MEDS: 0.9% Saline Lock 10 ML Syringe IV ×2 (15:11→17:40)
[2023-09-29] MEDS: HYDROmorphone 0.5 MG/0.5 ML SYRINGE IV (15:11)
[2023-09-29] MEDS: amLODIPine 5 MG Tablet PO (15:12)
--- NOTE | 2023-09-29 15:20 | CASEMGMT ---
KALANI HAMM Assessment: Face to Face with pt for initial transition planning/care coordination assessment. RN HANSEL introduced self and role at [facility], pt voices understanding and consents to assessment. Pt is A&O x4 and answers all questions appropriately at this time. Pt lying in bed with oxygen on with mother in room. Pt agreeable with assessment being completed in presence of mother. Care providers, pharmacy, and demographics verified/updated. Admitting Dx:acute cholecystitis PCP:Cathi Specialists:Denies Preferred Pharmacy:[facility] Insurance:[place] Prescription Benefit: yes LNOK:Yanni and Ezequiel Leaver, parents Living Arrangements: Pt lives with , brother and father in a two story home with 2 steps to enter. Pt reports he is I in ADL's and denies concerns at home. Transportation: Pt drives self and denies concerns with transportation. DME:Denies HHC/SNF:Denies hx of Pt states no concerns with going home at time of dc. Pt states no further concerns/needs. CM to follow. Advised pt to ask CM if any further question/concerns/needs arise, voices understanding. Pt Goal:Home Plan:Home
[2023-09-29] MEDS: hydrALAZINE 20 MG/ML Vial 10 MG IV (17:39)
[2023-09-29] MEDS: oxyCODONE 5 MG Tablet PO (21:34)
[2023-09-29] MEDS: Acetaminophen 500 MG Tablet PO (21:34)
[2023-09-29] MEDS: 0.9% Normal Saline (1000mL) 1,000 ML 50 ML IV (23:58)
[2023-09-30] VITALS (12 sets, daily range): BP systolic 136–167; BP diastolic 82–94; PULSE 76–93; RESP 16–18; TEMP 36.6–37.6; O2SAT 94–97
[2023-09-30] MEDS: Ibuprofen 400 MG Tablet PO ×5 (05:16→23:56)
[2023-09-30] MEDS: Piperacil/Tazobactam 3.375 GM in 0.9% Normal Saline (50mL MB+) 50 ML IV (05:17)
[2023-09-30] MEDS: oxyCODONE 5 MG Tablet PO (06:30)
[2023-09-30] MEDS: Acetaminophen 500 MG Tablet PO ×2 (06:30→18:42)
--- NOTE | 2023-09-30 06:35 | NURSING ---
Pt walked a full lap in the [facility]
[2023-09-30] MEDS: Losartan Potassium 25 MG Tablet PO (07:45)
[2023-09-30] MEDS: amLODIPine 5 MG Tablet PO (07:45)
[2023-09-30] MEDS: 0.9% Saline Lock 10 ML Syringe IV ×4 (08:55→16:28)
[2023-09-30] MEDS: HYDROmorphone 0.5 MG/0.5 ML SYRINGE IV (08:55)
[2023-09-30 09:06] LABS: Absolute Lymphocyte Count 2.56 X10^3/uL (0.83-4.51); Absolute Neutrophil Count 13.2 X10^3/uL (2.0-7.7); Basophil# 0.06 X10^3/uL; Basophil% 0.4 % (0-1); Eosinophil# 0.06 X10^3/uL; Eosinophils% 0.4 % (0-5); Hematocrit 46.5 % (40-54); Hemoglobin 14.8 g/dL (13.0-16.5); Lymphocyte # 2.56 X10^3/ul (0.83-4.51); Lymphocyte % 14.9 % (19-41); Mean Corp Hgb Conc 31.8 g/dL (32-36); Mean Corpuscular Hgb 28.1 pg (27.0-32.0); Mean Corpuscular Volume 88.4 fL (80-94); Mean Platelet Vol. 9.3 fl (6.2-12.0); Monocyte# 1.21 X10^3/uL; Monocyte% 7.1 % (0-10); NRBC Flagged by Analyzer 0 % (0-5); Neutrophil # 13.18 X10^3/uL (2.7-7.7); Neutrophil % 76.8 % (47-70); Platelet Count 305 K/mm3 (150-450); RBC Distribution Width SD 44.8 fl (35.1-43.9); Red Blood Count 5.26 M/mm3 (4.6-6.2); White Blood Count 17.1 K/mm3 (4.4-11.0)
[2023-09-30] MEDS: Pantoprazole Sodium 40 MG in 0.9% Normal Saline (100mL MB+) 100 ML 330 MG IV (09:35)
[2023-09-30] MEDS: Ondansetron 4 MG/2 ML Vial IV (09:35)
[2023-09-30 10:12] LABS: ALB/GLOB Ratio 0.9 RATIO (0.9-2.4); AST(SGOT) 97 U/L (15-37); Alanine Aminotransfer ALT/SGPT 199 U/L (16-61); Albumin, Serum 3.5 g/dL (3.2-5.0); Alkaline Phosphatase 82 U/L (45-117); Anion Gap 4 (5-15); BUN 8 mg/dL (7-18); BUN/Creat Ratio 8.1 RATIO (10-20); Calcium,Total 8.7 mg/dL (8.5-10.1); Chloride 109 mmol/L (98-107); Creatinine, Serum 0.99 mg/dL (0.70-1.30); EST Glomerular Filtration Rate 91 mL/min (>60); Est Glom Filt Rate - Afr Amer 110 mL/min (>60); Estimated Creatinine Clearance 144.12 ml/min; Globulin 3.8 g/dL (2.2-4.2); Glucose 102 mg/dL (74-106); Potassium 3.7 mmol/L (3.5-5.1); Protein, Total 7.3 g/dL (6.4-8.2); Sodium Level 137 mmol/L (136-145)
--- NOTE | 2023-09-30 10:26 | PN.SURG_ITS ---
Subjective Subjective Patient is a 33 y/o M who I am seeing in conjunction with Dr. Andres this morning. Patient appears to be very painful this morning. He denies nausea, vomiting. He has passed flatus. He is not hungry this morning. He did tolerate clear liquids last night. Objective Data Objective Data Vital Signs: Vital Signs Temp Pulse Resp BP Pulse Ox O2 Del Method O2 Flow Rate 99.0 F 93 16 136/93 H 97 Room Air 2 09/30/23 10:15 09/30/23 09:04 09/30/23 10:15 09/30/23 10:15 09/30/23 10:15 09/30/23 10:15 09/29/23 20:22 Oxygen Flow Rate (L/min) 2 Oxygen Delivery Method Room Air Weight: 313 lb 0.902 oz Body Mass Index (BMI) 47.6 Intake & Output: Intake and Output for Last 24 Hours 09/28/23 09/29/23 09/30/23 23:59 23:59 23:59 Intake Total 1810 / 1810 4586.74 / 4586.74 650 / 650 Balance 1810 / 1810 4586.74 / 4586.74 650 / 650 Lab / Micro Data 09/30/23 08:53 09/30/23 08:53 Labs: Laboratory Results - last 24 hr 09/30/23 08:53: WBC 17.1 H, RBC 5.26, Hgb 14.8, Hct 46.5, MCV 88.4, MCH 28.1, MCHC 31.8 L, RDW Std Deviation 44.8 H, RDW Coeff of Lynda 14.0, Plt Count 305, MPV 9.3, Immature Gran % (Auto) 0.400, Neut % (Auto) 76.8 H, Lymph % (Auto) 14.9 L, [place] % (Auto) 7.1, Eos % (Auto) 0.4, Baso % (Auto) 0.4, Absolute Neuts (auto) 13.2 H, Absolute Lymphs (auto) 2.56, Nucleated RBC % 0, Sodium 137, Potassium 3.7, Chloride 109 H, Carbon Dioxide 24.0, Anion Gap 4 L, BUN 8, Creatinine 0.99, Estim Creat Clear Calc 144.12, Est GFR (MDRD) Af Amer 110, Est GFR (MDRD) Non-Af 91, BUN/Creatinine Ratio 8.1 L, Glucose 102, Calcium 8.7, Total Bilirubin 1.00, AST 97 H, ALT 199 H, Alkaline Phosphatase 82, Total Protein 7.3, Albumin 3.5, Globulin 3.8, Albumin/Globulin Ratio 0.9 Radiography Diagnostic Testing: Radiology Impression Cholangiogram 09/29/23 06:30 IMPRESSION: Normal intraoperative cholangiogram Electronically Signed: Tho Gilbert MD at 13:55 EST , Physical Exam Const alert, oriented x3 and no apparent distress GI GI Narrative: Abdomen- obese, very tender to palpation. Incisions c/d/i. No erythema or infection noted. Assessment & Plan Assessment/Plan (1) Acute cholecystitis: PLAN: I evaluated this patient in conjunction with Dr. Andres this morning. Patient noting generalized abdominal pain, slightly worse in the RUQ Increase diet to full liquids D/C IV fluids and antibiotics Keep patient's IV KVO at this time Possible discharge later today Appreciate hospitalist input Charges/Coding Visit Charges Inpatient E&M: 73329 Subs Hosp L1 (post-op; no charge)
--- NOTE | 2023-09-30 10:39 | PN.HOSP_ITS ---
Reason for Visit Reason for Visit: Diagnoses Essential (primary) hypertension (09/28/23) Acute cholecystitis (09/28/23) Subjective Subjective Having abdominal pain postoperatively but otherwise feeling well. Patient was notified that his oxygen dropped down to 85% while he was sleeping. Patient is never been evaluated for sleep apnea in the past. Objective Data Objective Data Vital Signs: Vital Signs Temp Pulse Resp BP Pulse Ox O2 Del Method O2 Flow Rate 37.2 C 93 16 136/93 H 97 Room Air 2 09/30/23 10:15 09/30/23 09:04 09/30/23 10:15 09/30/23 10:15 09/30/23 10:15 09/30/23 10:15 09/29/23 20:22 Oxygen Flow Rate (L/min) 2 Oxygen Delivery Method Room Air Weight: 142 kg Body Mass Index (BMI) 47.6 Intake & Output: Intake and Output for Last 24 Hours 09/28/23 09/29/23 09/30/23 23:59 23:59 23:59 Intake Total 1810 / 1810 4586.74 / 4586.74 650 / 650 Balance 1810 / 1810 4586.74 / 4586.74 650 / 650 Lab / Micro Data 09/30/23 08:53 09/30/23 08:53 Labs: Laboratory Results - last 24 hr 09/30/23 08:53: WBC 17.1 H, RBC 5.26, Hgb 14.8, Hct 46.5, MCV 88.4, MCH 28.1, MCHC 31.8 L, RDW Std Deviation 44.8 H, RDW Coeff of Lynda 14.0, Plt Count 305, MPV 9.3, Immature Gran % (Auto) 0.400, Neut % (Auto) 76.8 H, Lymph % (Auto) 14.9 L, [place] % (Auto) 7.1, Eos % (Auto) 0.4, Baso % (Auto) 0.4, Absolute Neuts (auto) 13.2 H, Absolute Lymphs (auto) 2.56, Nucleated RBC % 0, Sodium 137, Potassium 3.7, Chloride 109 H, Carbon Dioxide 24.0, Anion Gap 4 L, BUN 8, Creatinine 0.99, Estim Creat Clear Calc 144.12, Est GFR (MDRD) Af Amer 110, Est GFR (MDRD) Non-Af 91, BUN/Creatinine Ratio 8.1 L, Glucose 102, Calcium 8.7, Total Bilirubin 1.00, AST 97 H, ALT 199 H, Alkaline Phosphatase 82, Total Protein 7.3, Albumin 3.5, Globulin 3.8, Albumin/Globulin Ratio 0.9 Radiography Diagnostic Testing: Radiology Impression Cholangiogram 09/29/23 06:30 IMPRESSION: Normal intraoperative cholangiogram Electronically Signed: Tho Gilbert MD at 13:55 EST , Physical Exam Narrative Holding his abdomen. Nontoxic. No respiratory stress. No conversational dyspnea. Const alert and no apparent distress HEENT head/scalp atraumatic Resp no use of accessory muscles Assessment & Plan Assessment/Plan (1) Acute cholecystitis: PLAN: Plan Acute cholecystitis: Status post laparoscopic cholecystectomy. Management per surgery. Leukocytosis: Secondary to cholecystitis. Trending down. On pip-tazo. Suspected obstructive sleep apnea: Patient was noted to drop his sats at night. Is unclear if patient does have sleep apnea or if just combination of his surgery as well as pain medications may have precipitated that. Advised patient that weight loss would help but can be further evaluated as outpatient for sleep study. Medically stable. Will follow peripherally. Charges/Coding Visit Charges Inpatient E&M: 08504 [facility] Hosp L1
[2023-09-30] MEDS: Ketorolac 30 MG/ML Syringe IM (13:02)
--- NOTE | 2023-09-30 15:12 | NURSING ---
reviewed student charting
[2023-09-30] MEDS: hydrALAZINE 20 MG/ML Vial 10 MG IV (16:28)
[2023-10-01 02:00] VITALS: BP 147/85; PULSE 85; RESP 16; TEMP 36.6; O2SAT 96
[2023-10-01] MEDS: Acetaminophen 500 MG Tablet PO (02:35)
[2023-10-01] MEDS: Ibuprofen 400 MG Tablet PO ×2 (06:02→11:32)
[2023-10-01 08:59] LABS: Absolute Lymphocyte Count 2.35 X10^3/uL (0.83-4.51); Absolute Neutrophil Count 8.1 X10^3/uL (2.0-7.7); Basophil# 0.04 X10^3/uL; Basophil% 0.3 % (0-1); Eosinophil# 0.18 X10^3/uL; Eosinophils% 1.6 % (0-5); Hematocrit 43.1 % (40-54); Lymphocyte # 2.35 X10^3/ul (0.83-4.51); Lymphocyte % 20.5 % (19-41); Mean Corp Hgb Conc 32.5 g/dL (32-36); Mean Corpuscular Hgb 28.2 pg (27.0-32.0); Mean Corpuscular Volume 86.7 fL (80-94); Mean Platelet Vol. 9.2 fl (6.2-12.0); Monocyte# 0.76 X10^3/uL; Monocyte% 6.6 % (0-10); NRBC Flagged by Analyzer 0 % (0-5); Neutrophil # 8.06 X10^3/uL (2.7-7.7); Neutrophil % 70.5 % (47-70); Platelet Count 286 K/mm3 (150-450); RBC Distribution Width CV 13.7 % (11.6-14.6); RBC Distribution Width SD 43.3 fl (35.1-43.9); Red Blood Count 4.97 M/mm3 (4.6-6.2); White Blood Count 11.5 K/mm3 (4.4-11.0)
[2023-10-01 09:11] VITALS: BP 148/79; PULSE 83; RESP 18; TEMP 36.6; O2SAT 96
[2023-10-01] MEDS: amLODIPine 5 MG Tablet PO (09:22)
[2023-10-01] MEDS: Pantoprazole Sodium 40 MG in 0.9% Normal Saline (100mL MB+) 100 ML 330 MG IV (09:22)
[2023-10-01] MEDS: Losartan Potassium 25 MG Tablet PO (09:22)
[2023-10-01 09:29] LABS: ALB/GLOB Ratio 0.8 RATIO (0.9-2.4); AST(SGOT) 99 U/L (15-37); Alanine Aminotransfer ALT/SGPT 196 U/L (16-61); Albumin, Serum 3.3 g/dL (3.2-5.0); Alkaline Phosphatase 82 U/L (45-117); Anion Gap 7 (5-15); BUN 8 mg/dL (7-18); BUN/Creat Ratio 11.4 RATIO (10-20); Calcium,Total 8.9 mg/dL (8.5-10.1); Chloride 108 mmol/L (98-107); EST Glomerular Filtration Rate 136 mL/min (>60); Est Glom Filt Rate - Afr Amer 165 mL/min (>60); Estimated Creatinine Clearance 203.83 ml/min; Globulin 3.9 g/dL (2.2-4.2); Glucose 96 mg/dL (74-106); Potassium 3.3 mmol/L (3.5-5.1); Protein, Total 7.2 g/dL (6.4-8.2); Sodium Level 137 mmol/L (136-145)
--- NOTE | 2023-10-01 10:30 | PCM.DC.SUM ---
Providers Date of Admission: 09/28/23 Primary Care Physician: Dr. Andreas Winkler MD Consultations 09/29/23 13:48 Consult: Hospitalist Routine Consulting Provider: Leodan Chambers Reason for Consult: medical management EMERGENT Consult: No MD Notified: Yes Date Notified: 09/29/23 Time Notified: 13:48 Method of Notification: Verbal Reason For Visit: ACUTE CHOLECYSTITIS Diagnosis Discharge Diagnosis (1) Acute cholecystitis: Status: Acute Code(s): K81.0 - Acute cholecystitis Plan: I evaluated this patient in conjunction with Dr. Andres this morning. Patient noting generalized abdominal pain, slightly worse in the RUQ Increase diet to full liquids D/C IV fluids and antibiotics Keep patient's IV KVO at this time Possible discharge later today Appreciate hospitalist input Medications at Discharge Home Medications aluminum-mag hydroxide-simethicone 200 mg-200 mg-20 mg/5 mL oral susp (Advanced Antacid-Antigas) 5 ml PO Q3H PRN indigestion 09/28/23 amlodipine 5 mg tablet 5 mg PO DAILY #30 tabs 09/30/23 losartan 25 mg tablet 25 mg PO DAILY #30 tabs 09/30/23 oxycodone 5 mg tablet 5 mg PO Q6H PRN PRN Pain Score 6-10 3 days #10 tabs 09/30/23 Hospital Course Operations cholecystecomy (Laparoscopic cholecystectomy with intraoperative cholangiography) Summary of Care Provided Minutes Spent on Discharge: 30 Hospital Course: Patient is a 33 y/o M who presented with acute cholecystitis. Dr. Andres performed a Laparoscopic cholecystectomy with intraoperative cholangiography on 09/29/23. Patient tolerated the procedure well. Patient had an uncomplicated hospitalization. Upon discharge, patient's pain seems better controlled. He tolerated his current diet. He feels comfortable going home. Physical Exam GI GI Narrative: abdomen- soft, slight tenderness at the incision sites in the RUQ. Incisions c/d/i. No erythema or infection noted. Positive bowel sounds. Weight / BMI Weight Weight: 313 lb 0.902 oz Body Mass Index (BMI) 47.6 ABG / Lab / Microbiology Data 10/01/23 08:25 10/01/23 08:25 Laboratory: Laboratory Results - last 24 hr 10/01/23 08:25: WBC 11.5 H, RBC 4.97, Hgb 14.0, Hct 43.1, MCV 86.7, MCH 28.2, MCHC 32.5, RDW Std Deviation 43.3, RDW Coeff of Lynda 13.7, Plt Count 286, MPV 9.2, Immature Gran % (Auto) 0.500, Neut % (Auto) 70.5 H, Lymph % (Auto) 20.5, [place] % (Auto) 6.6, Eos % (Auto) 1.6, Baso % (Auto) 0.3, Absolute Neuts (auto) 8.1 H, Absolute Lymphs (auto) 2.35, Nucleated RBC % 0, Sodium 137, Potassium 3.3 L, Chloride 108 H, Carbon Dioxide 22.0, Anion Gap 7, BUN 8, Creatinine 0.70, Estim Creat Clear Calc 203.83, Est GFR (MDRD) Af Amer 165, Est GFR (MDRD) Non-Af 136, BUN/Creatinine Ratio 11.4, Glucose 96, Calcium 8.9, Total Bilirubin 0.90, AST 99 H, ALT 196 H, Alkaline Phosphatase 82, Total Protein 7.2, Albumin 3.3, Globulin 3.9, Albumin/Globulin Ratio 0.8 L D/C Instructions Discharge Diet: Light diet - advance as tolerated Discharge Activity: May Not Drive (3-5 days or while taking narcotic pain medication) Lifting Restrictions: 15 pounds for 3 weeks Call your doctor if your incision/area has: Continuous Slow Oozing, Sudden Increased Bleeding, Increased Pain/ Swelling, Increased Redness, Foul Smelling Discharge and Swelling at the incision site Call your doctor if you observe: Fever of 101 or Higher Suture Line Care: Avoid Pulling/Pushing and Avoid Pinching/Bending Remove Dressing in: 1 day Cleanse incision/area with: Soap & Water Please Follow Up With: Edilson Andres MD When: Please call our office at [phone] to schedule a post-op appointment for 10-14 days after surgery Meaningful Use Info Meaningful Use Diagnoses (Choose all that apply): None applicable Discharge Plan Admission Admit Date/Time: 09/28/23 18:55 Primary Reason for Your Visit: Acute cholecystitis Attending Provider: Edilson Andres Primary Care Provider: Andreas Winkler Consulting Providers: Yudi Johnson; Hamzah Concepcion; Mellissa Koehler; Mellissa Alarcon; Janis Craft; Kandy Ambrose; Shreya Carter; Andrzej Dunn; Andrzej Jackson; Marcus Blevins; Quintin Hernandez; Nida Garcia; Sergey Graf; Ezequiel Mcgill; Chandra Ocampo; Arabella Terry; Clarke Dietz; Sarai Sue; Juanito Enriquez; Aquiles Floyd; Mauri Mooney; Marlys Shipman; Venkat Carrillo; Maricarmen Urias NP; Dale Russo Instructions Additional Instructions / Restrictions: Cholecystectomy Diet ? Start light with soups and soft bland foods. You may advance diet as tolerated. Activity ? You may drive in 3-5 days but not while taking narcotic pain medication. ? I encourage walking. You may go up steps, one at a time. ? Do not swim or use hot tubs for 2 weeks. ? For comfort, you may use warm compresses or ice as needed for 15-20 minutes at a time over the next 2 days. Lifting ? You may lift up to 15 pounds for the first 3 weeks. Dressings/Incision ? You may shower OVER your plastic dressings ? Do NOT tub bathe for 1 week ? Remove plastic dressings today. ? When plastic dressings are removed, you will find steri strips. It is okay to continue showering with them in place, pat them dry. ? You may remove steri-strips after 1 week. We recommend getting them soaking wet for easier removal. Medications ? Anesthesia used during surgery and pain medications may cause constipation. I recommend initiating on the day of surgery a fiber supplement like, Metamucil, Citrucel, FiberCon, Benefiber, or a generic form of these medications. 1 heaping tablespoon in water daily. You may continue to utilize any bowel regimen or oral laxatives that you routinely take. ? As long as you are not intolerant to Tylenol, acetaminophen, ibuprofen, Motrin, Advil, Aleve, or similar medications, I would recommend transitioning to these [id number] medicines as soon as possible instead of continued use of narcotic pain medication. Follow up ? You should call [facility] soon after surgery, at [phone] option 1 to make a follow up appointment for 10-14 days after your surgery. Discharge Orders/Prescriptions Prescriptions: New amlodipine 5 mg Tablet 5 mg PO DAILY Qty: 30 1RF losartan 25 mg Tablet 25 mg PO DAILY Qty: 30 1RF oxycodone 5 mg Tablet 5 mg PO Q6H PRN PRN (Reason: Pain Score 6-10) 3 Days Qty: 10 0RF Continued alum-mag hydroxide-simeth [Advanced Antacid-Antigas] 200-200-20 mg/5 mL suspension 5 ml PO Q3H PRN (Reason: indigestion) Referrals / Follow Up: Edilson Andres MD [Med Staff - Active Staff] - (Please contact our office to schedule a follow-up appointment for 10-14 days from surgery date.) Andreas Winkler MD [Primary Care Provider] - Care Physician,No Primary [Non-Staff] - Disposition Disposition (needs filled in before D/C Order can be placed): Home, Self Care Charges/Coding Visit Charges Inpatient E&M: 82667 Disch Hosp (No charge; post-op)
--- NOTE | 2023-10-01 11:06 | CASEMGMT ---
KALANI CM into pt room, pt and mother present. Pt denies any homegoing needs. Pt asked if she can shower pt. Updated pt nurse with this question.
== END 2023-10-01 12:00 | disposition home or self-care (01) | DRG 418 ==
LOC: ED 17:53 → MS3 09-29 06:29
PROVIDERS: Physician Assistant; Admitting Provider Surgery; Emergency Provider Emergency Medicine; PCP Family Medicine; Visit Provider Surgery
PROC: (CPT 47610; principal; 2023-09-29 08:40)
DX: K80.12 Calculus of gallbladder with acute and chronic cholecystitis without obstruction (principal); Z68.42 Body mass index [BMI] 45.0-49.9, adult; E66.01 Morbid (severe) obesity due to excess calories; K76.0 Fatty (change of) liver, not elsewhere classified; I10 Essential (primary) hypertension; E78.5 Hyperlipidemia, unspecified; F17.210 Nicotine dependence, cigarettes, uncomplicated; K82.8 Other specified diseases of gallbladder; Z79.899 Other long term (current) drug therapy
CPT/HCPCS: 47563; 00790; 36415; 74177; 74300; 76000; 76705; 80053; 81001; 83690; 83735; 84100; 85025; 88304; 93005; 96361; 96365; 96366; 96367; 96375; 96376; 99221; 99284; J7030; J7120; Q9967; A4216; G0378; J2405